=== PATIENT | female | born 1995 | race Caucasian/White ===

== ENCOUNTER 2021-03-09 09:01 | Emergency (ER) | payer OTHER ==
[~2021-03-09 09:01] MED LIST: COLACE100 MG PO; FERROUS SULFAT325 MG PO; IBUPROFEN600 MG PO; PRENATAL TABLE1 EAC1 PO
[2021-03-09 12:05] LABS: BASOPHIL 0.6 % (0-2); EOSINOPHIL 1.7 % (0-5); HCT 38.6 % (37.0-47.0); HGB 13.1 g/dl (12.5-16.0); LYMPHOCYTE 31.9 % (15-48); MCH 28.7 pg (25.0-31.0); MCHC 33.9 g/dL (32.0-36.0); MCV 84.5 fL (78.0-100.0); MONOCYTE 5.7 % (0-12); MPV 10.3 fL (6.0-9.5); NEUTROPHIL 59.8 % (41-80); NRBC 0; PLT 188 K/uL (150-400); RBC 4.57 M/uL (4.20-5.40); RDW 11.8 % (11.5-14.0); WBC 3.5 K/uL (4.0-10.5)
[2021-03-09 12:24] LABS: IRON % SATURATION 38.1 %SAT (20-50)
[2021-03-09 12:32] LABS: ALBUMIN 4.3 g/dL (3.4-5.0); BILIRUBIN - TOTAL 1.5 mg/dL (0.2-1.0); BUN/CREAT RATIO (CALC) 19.1 RATIO; CREATININE 0.68 mg/dL (0.51-0.95); GLOBULIN (CALCULATION) 3.5 g/dL; POTASSIUM 4.3 mmol/L (3.5-5.1); TOTAL PROTEIN 7.8 g/dL (6.4-8.2)
== END 2021-03-09 13:18 | disposition home or self-care (01) ==
LOC: FER 09:01
PROVIDERS: Emergency Medicine
DX: H57.04 Mydriasis (principal); R42 Dizziness and giddiness
CPT/HCPCS: 36415; 80053; 83540; 83550; 85025; 99283